=== PATIENT | female | born 1970 | race American Indian/Alaskan Native ===

== ENCOUNTER 2016-04-20 07:10 | Day surgery (SDC) | payer MEDICAID ==
[2016-04-20] MEDS ORDERED: DIPRIVAN 10 MG/ML IV ONE ×2 (07:53)
[2016-04-20] MEDS ORDERED: NACL 0.9% 1000 ML 1,000 ML IV SCH (08:00)
--- NOTE | 2016-04-20 08:07 | Anesthesia Day of Surgery ---
Anesthesia Day of Surgery - Day of Surgery Patient Examined: Yes Patient H&P Reviewed: Yes Patient is NPO: Yes
--- NOTE | 2016-04-20 08:09 | Anesthesia Consultation ---
Anesthesia Consult and Med Hx Date of service: 04/20/16 - Airway Anesthetic Teeth Evaluation: Good ROM Head & Neck: Adequate Mental/Hyoid Distance: Adequate Mallampati Class: Class II Intubation Access Assessment: Probably Good - Pulmonary Exam CTA: Yes - Cardiac Exam Cardiac Exam: RRR - Pre-Operative Health Status ASA Pre-Surgery Classification: ASA3 Proposed Anesthetic Plan: MAC - Pulmonary Hx Smoking: Yes Hx Asthma: Yes - Cardiovascular System Hx Hypertension: Yes Hx Coronary Artery Disease: No - Central Nervous System Hx Seizures: No CVA: No Hx Back Pain: Yes - Gastrointestinal Hx Gastroesophageal Reflux Disease: Yes (well controlled w OTC meds) - Endocrine Hx Renal Disease: No Hx Liver Disease: No Hx Non-Insulin Dependent Diabetes: No - Hematic Hx Sickle Cell Disease: Yes (TRAIT) - Other Systems Hx Alcohol Use: Yes (RED WINE) Hx Obesity: Yes (BMI 45) - Additional Comments Anesthesia Medical History Comments: Hx of PONV
[2016-04-20 08:41] VITALS: BP 121/69
--- NOTE | 2016-04-20 08:58 | Operative Report ---
ENDOSCOPY REPORT ATTENDING SURGEON: Juan Daniel Lobo M.D. PICTURE BOOKER: Carlos Alberto Escamilla M.D. PREOPERATIVE DIAGNOSES: Dyspepsia and workup for bariatric surgery. POSTOPERATIVE DIAGNOSIS: Hiatal hernia. INDICATIONS FOR PROCEDURE: The patient is a 46-year-old female who is undergoing workup for bariatric surgery. She has some complaints of dyspepsia and after discussing risks and benefits of the procedure, she has had a consent for it. DESCRIPTION OF PROCEDURE: The patient was brought to the endoscopic suite, was placed in left lateral position. MAC anesthesia was given by the anesthesia team. Timeout was called. The patient and procedure were correct, so I proceeded to insert the endoscope into the oropharynx, down the esophagus, stomach and duodenum. Then, it was slowly retrieved assessing the mucosa circumferentially. There were no gross abnormalities in the duodenum, antrum or body of the stomach. Then, the scope was retroflexed to observe the fundus and the hiatus. No fundal abnormalities were seen, but there was a medium size hiatal hernia that was visualized. Then, we proceeded to retrieve through the scope and deflate the stomach. GE junction was observed with no major abnormalities. Then, we proceeded to finally retrieve the scope, finalize the procedure. The patient tolerated very well and was sent to the post-endoscopy recovery room. JOB# [id number] PAULIE/KIM
--- NOTE | 2016-04-20 09:16 | Post Anesthesia Evaluation ---
- Post Anesthesia Evaluation Patient Participated: Yes Airway Patent: Yes Stable Respiratory Function: Yes Temp > 96.8F: Yes Pain Manageable: Yes Adequeate Hydration: Yes Anesthesia Complications: No Block Receding Appropriately: Not Applicable
== END 2016-04-20 07:11 | disposition home or self-care (01) ==
LOC: GIO 07:10
PROVIDERS: ATTEND Specialist
DX: K44.9 Diaphragmatic hernia without obstruction or gangrene (principal); G47.33 Obstructive sleep apnea (adult) (pediatric); K21.9 Gastro-esophageal reflux disease without esophagitis; I10 Essential (primary) hypertension; J45.909 Unspecified asthma, uncomplicated; D57.3 Sickle-cell trait; E66.01 Morbid (severe) obesity due to excess calories; Z68.42 Body mass index [BMI] 45.0-49.9, adult; Z98.51 Tubal ligation status; Z90.710 Acquired absence of both cervix and uterus; Z98.890 Other specified postprocedural states; Z72.89 Other problems related to lifestyle; Z83.3 Family history of diabetes mellitus; Z82.49 Family history of ischemic heart disease and other diseases of the circulatory system; Z80.9 Family history of malignant neoplasm, unspecified
CPT/HCPCS: 43235; J2704; J7030